=== PATIENT | female | born 1950 | race Hispanic/Latino ===

== ENCOUNTER → 2018-01-19 | Day surgery (SDC) | payer MEDICARE ==
[2018-01-16 15:04] LABS: BASOPHILS % 0.5 % (0.0-1.0); EOSINOPHILS # (AUTO) 0.2 (0.0-0.4); EOSINOPHILS % 2.2 % (0.0-6.0); HEMATOCRIT 34.5 % (34.2-44.1); HEMOGLOBIN 11.3 g/dL (12.0-16.0); LYMPHOCYTES # (AUTO) 1.9 (1.0-3.2); LYMPHOCYTES % 21.7 % (18.0-39.1); MEAN CORPUSCULAR HEMOGLOBIN 28.3 pg (28-32); MEAN CORPUSCULAR HGB CONC 32.8 g/dL (31-35); MEAN CORPUSCULAR VOLUME 86.5 fL (81-99); MONOCYTES # (AUTO) 0.5 (0.2-0.8); MONOCYTES % 5.2 % (4.4-11.3); NEUTROPHILS # (AUTO) 6.2 (2.1-6.9); NEUTROPHILS % 70.1 % (38.7-80.0); PLATELET COUNT 232 x10e3/uL (140-360); RED BLOOD COUNT 3.99 x10e6/uL (3.6-5.1)
[~2018-01-19] MED LIST: ACTOS30 MG PO; AMARYL4 MG PO; ATORVASTATIN CA20 MG PO; COLACE100 MG PO; COUMADIN5 MG PO; FENTANYL CITRATE/PF 100MCG/2 ML INJ ONE; HYOSCYAMINE SULFATE 0.5 MG/ML AMP ONE; JANUVIA100 MG PO; LIDOCAINE HCL 2% LOCAL INJ 5 ML SDV VIAL INJ ONE; METFORMIN HCL500 MG PO; MIDAZOLAM HCL 2 MG/2 ML VIAL ONE; NEXIUM40 MG PO; PROPOFOL IV EMULSION 10 MG/ML 50 ML VIAL ONE; TRAMADOL-ACETAMI1 EA PO; WARFARIN SODIU7.5 MG PO; XARELTO20 MG PO
--- NOTE | 2018-01-19 17:59 | Operative Report ---
DATE OF PROCEDURE: January 19, 2018 REFERRING PHYSICIAN: Dr. Laeh Noble. PROCEDURE PERFORMED: Colonoscopy and polypectomy. INDICATIONS FOR COLONOSCOPY: Colorectal cancer screening. MEDICATION: Patient was done under MAC. Please see anesthesiologist's note. PROCEDURE: With patient in the left lateral decubitus position, flexible fiberoptic Olympus colonoscope was inserted into the rectum with ease and advanced all the way to the cecum. A minute polyp was hot biopsied in the cecum. Polypectomy site was hemoclipped. The scope was then withdrawn slowly. The mucosa overlying the ascending, transverse, descending and sigmoid revealed some scattered diverticular disease. The rectum grossly appeared to be within normal limits. The scope was then retroflexed into the distal rectum and small internal hemorrhoids were noted, none of which was actively bleeding. The scope was then straightened out. It was subsequently withdrawn. Patient tolerated procedure well. IMPRESSION: 1. Cecal polyp, hot biopsied, polypectomy site hemoclipped. 2. Diverticulosis. 3. Internal hemorrhoids, none actively bleeding. PLAN: Follow up histology. Initiate high-fiber low-fat diet. Initiate high-fiber supplement. . Patient will need a followup colonoscopy in 3 to 5 years. Job#: [id number] GH cc:LEAH NOBLE MD
== END | disposition home or self-care (01) ==
LOC: OR 12:33
PROVIDERS: ATTEND Internal Medicine Gastroenterology
DX: Z12.11 Encounter for screening for malignant neoplasm of colon (principal); K63.5 Polyp of colon; K57.30 Diverticulosis of large intestine without perforation or abscess without bleeding; K64.8 Other hemorrhoids; E11.9 Type 2 diabetes mellitus without complications; E78.5 Hyperlipidemia, unspecified; Z01.810 Encounter for preprocedural cardiovascular examination; Z01.812 Encounter for preprocedural laboratory examination; Z79.02 Long term (current) use of antithrombotics/antiplatelets; Z86.711 Personal history of pulmonary embolism
CPT/HCPCS: 36415 ×2; 45384; 82948; 85025; 93005; J1980; J2001; J2250

== ENCOUNTER → 2019-07-03 | Day surgery (SDC) | payer MEDICARE ==
[2019-07-02 10:58] LABS: BASOPHILS % 0.6 % (0.0-1.0); EOSINOPHILS # (AUTO) 0.2 (0.0-0.4); EOSINOPHILS % 2.5 % (0.0-6.0); HEMATOCRIT 35.6 % (34.2-44.1); HEMOGLOBIN 11.4 g/dL (12.0-16.0); LYMPHOCYTES # (AUTO) 1.4 (1.0-3.2); LYMPHOCYTES % 21.2 % (18.0-39.1); MEAN CORPUSCULAR HEMOGLOBIN 28.2 pg (28-32); MEAN CORPUSCULAR VOLUME 88.1 fL (81-99); MONOCYTES # (AUTO) 0.4 (0.2-0.8); MONOCYTES % 6.5 % (4.4-11.3); NEUTROPHILS # (AUTO) 4.7 (2.1-6.9); NEUTROPHILS % 68.8 % (38.7-80.0); PLATELET COUNT 256 x10e3/uL (140-360); RED BLOOD COUNT 4.04 x10e6/uL (3.6-5.1); RED CELL DISTRIBUTION WIDTH 13.2 % (11.7-14.4)
[~2019-07-03] MED LIST changes: +GLIPIZIDE5 MG PO; +HYOSCYAMINE 0.125 MG TAB ONE; -HYOSCYAMINE SULFATE 0.5 MG/ML AMP ONE; +JANUMET 50-1,01 EACH PO; +LEVEMIR100 UNIT/1 SQ; -LIDOCAINE HCL 2% LOCAL INJ 5 ML SDV VIAL INJ ONE
--- OUTSIDE RECORDS SUMMARY | 2019-07-03 08:14 | XMS REPORT ---
Author Author [facility] Address Unknown Phone Unavailable Care Team Providers Care Laserist Name Role Phone Unavailable Unavailable Payers Payer Name Policy Type Policy Number Effective Date Expiration Date Problems This patient has no known problems. Allergies, Adverse Reactions, Alerts Allergy Name Allergy Type Status Severity Reaction(s) Onset Date Inactive Date Treating Clinician Comments No Known Allergies DA Active U 2012-08-24 00:00:00 Medications This patient has no known medications.
[2019-07-03 13:20] VITALS: BP 110/74
--- NOTE | 2019-07-03 13:59 | Operative Report ---
DATE OF PROCEDURE: 07/03/2019 SURGEON: Mina Lucas MD PROCEDURES: EGD with biopsies and colonoscopy with polypectomy. INDICATIONS FOR EGD: History of dark stools. Guaiac-positive stools. INDICATIONS FOR COLONOSCOPY: Guaiac-positive stools, personal history of colon polyps. MEDICATIONS: The patient was done under MAC, please see anesthesiologist's note. PROCEDURE IN DETAIL: With the patient in left lateral decubitus position, the flexible fiberoptic Olympus gastroscope was introduced into the esophagus under direct visualization without any difficulty. There was some patchy erythema noted in distal esophagus. The GE junction was somewhat raised and that was biopsied. The scope was then advanced with ease into the stomach. Mucosa overlying the antrum and the body revealed some patchy erythema and [id number] edema, and biopsies were obtained and sent to stain for H. pylori. Pylorus was of normal contour and shape, it was intubated with ease and the scope was advanced all the way to the second portion of the duodenum. The scope was then withdrawn slowly and mucosa overlying the second portion appeared to be within normal limits. There were some scattered minute ulcers noted in the duodenal bulb without active bleeding. The scope was then withdrawn back into the stomach and retroflexed and the mucosa overlying the fundus and the cardia appeared to be within normal limits. The scope was then straightened out, it was subsequently withdrawn, and the patient tolerated the procedure well. IMPRESSION: 1. Distal esophagitis. 2. GE junction somewhat raised, biopsied. 3. Gastritis, biopsied, biopsies sent to stain for Helicobacter pylori. 4. Several minute ulcers duodenal bulb without active bleeding or stigmata of recent hemorrhage. PLAN: Follow up histology. Initiate Protonix 40 mg one p.o. q.a.m. before meals. The patient was then turned around and after adequate lubrication of the anal canal, a flexible fiberoptic Olympus colonoscope was inserted into the rectum with ease and advanced all the way to the cecum. It was then withdrawn slowly and mucosa overlying the cecum, ascending colon, transverse colon, and descending colon appeared to be within normal limits. Diverticular disease was noted in the sigmoid colon. One polyp was removed per hot biopsy forceps from the sigmoid colon. The rectum appeared to be within normal limits. The scope was then retroflexed into the distal rectum and small internal hemorrhoids were noted, none of which was actively bleeding. The scope was then straightened out, it was subsequently withdrawn, and the patient tolerated the procedure well. IMPRESSION: 1. Diverticulosis. 2. Sigmoid colon polyp, hot biopsied. 3. Internal hemorrhoids, none actively bleeding. PLAN: Follow up histology. Initiate high-fiber, low-fat diet. Initiate high-fiber supplement. The patient might benefit from a followup colonoscopy in 5 years. Mina Lucas MD [facility]/[id number] /[id number] cc: Greg Subramanian MD
== END | disposition home or self-care (01) ==
LOC: OR 08:05
PROVIDERS: ATTEND Internal Medicine Gastroenterology
DX: R19.5 Other fecal abnormalities (principal); K63.5 Polyp of colon; K29.50 Unspecified chronic gastritis without bleeding; K25.9 Gastric ulcer, unspecified as acute or chronic, without hemorrhage or perforation; B96.81 Helicobacter pylori [H. pylori] as the cause of diseases classified elsewhere; K20.9 Esophagitis, unspecified; K59.00 Constipation, unspecified; K57.30 Diverticulosis of large intestine without perforation or abscess without bleeding; K64.8 Other hemorrhoids; Z01.810 Encounter for preprocedural cardiovascular examination; Z01.812 Encounter for preprocedural laboratory examination; Z79.84 Long term (current) use of oral hypoglycemic drugs; Z79.02 Long term (current) use of antithrombotics/antiplatelets; Z79.4 Long term (current) use of insulin
CPT/HCPCS: 36415 ×2; 43239; 45384; 82948; 85025; 88305; 88312; 93005; J2250; J2704; J3010; 45378

== ENCOUNTER → 2020-11-27 | Outpatient (CLI) | payer MEDICARE ==
[~2020-11-27] MED LIST changes: -FENTANYL CITRATE/PF 100MCG/2 ML INJ ONE; +HEPARIN SOD (PORCINE) 1000 UNIT/ML SDV ONE; -HYOSCYAMINE 0.125 MG TAB ONE; -MIDAZOLAM HCL 2 MG/2 ML VIAL ONE; -PROPOFOL IV EMULSION 10 MG/ML 50 ML VIAL ONE
== END ==
LOC: NM 07:24
PROVIDERS: ATTEND Internal Medicine Gastroenterology
DX: Z01.812 Encounter for preprocedural laboratory examination (principal); R19.5 Other fecal abnormalities
CPT/HCPCS: 74250; 78278; A9512 ×2; J1644; U0002

== ENCOUNTER → 2021-01-21 | Day surgery (SDC) | payer MEDICARE ==
[2021-01-18 09:43] LABS: BASOPHILS % 0.5 % (0.0-1.0); EOSINOPHILS # (AUTO) 0.2 (0.0-0.4); EOSINOPHILS % 3.4 % (0.0-6.0); HEMATOCRIT 35.4 % (34.2-44.1); HEMOGLOBIN 11.3 g/dL (12.0-16.0); LYMPHOCYTES # (AUTO) 1.8 (1.0-3.2); LYMPHOCYTES % 27.5 % (18.0-39.1); MEAN CORPUSCULAR HEMOGLOBIN 27.8 pg (28-32); MEAN CORPUSCULAR HGB CONC 31.9 g/dL (31-35); MEAN CORPUSCULAR VOLUME 87.2 fL (81-99); MONOCYTES # (AUTO) 0.5 (0.2-0.8); MONOCYTES % 7.7 % (4.4-11.3); NEUTROPHILS # (AUTO) 3.9 (2.1-6.9); NEUTROPHILS % 60.6 % (38.7-80.0); PLATELET COUNT 233 x10e3/uL (140-360); RED BLOOD COUNT 4.06 x10e6/uL (3.6-5.1); RED CELL DISTRIBUTION WIDTH 13.8 % (11.7-14.4)
[2021-01-18 10:04] LABS: ANION GAP 14.5 mmol/L (8-16); BLOOD UREA NITROGEN 13 mg/dL (7-26); BUN/CREATININE RATIO 19 (6-25); CALCIUM 9.5 mg/dL (8.4-10.2); CARBON DIOXIDE 24 mmol/L (22-29); CHLORIDE 106 mmol/L (98-107); CREATININE, SERUM 0.69 mg/dL (0.57-1.11); EST GLOMERULAR FILTRATION RATE > 60 ML/MIN (60-); GLUCOSE 138 mg/dL (74-118); POTASSIUM 4.5 mmol/L (3.5-5.1); SODIUM 140 mmol/L (136-145)
[~2021-01-21] MED LIST changes: +BALANCED SALT SOLN (OPTH) 15 ML BTL IO ONE; +BERBERINE PO; +BUPIVACAINE HC 0.75% PF 10ML VIAL INJ ONE; +CYCLOPENTOLATE HCL 1% OPTH SOLN 2ML BTL ONE; +EPINEPHRINE HCL 1:1000 1ML 1 MG/ML AMP ONE; +FERROUS SULFAT325 MG PO; +FOLIC ACID0.4 MG PO; +GATIFLOXACIN(OPTH) 5 ML LIQD ONE; +GLIMEPIRIDE2 MG PO; -HEPARIN SOD (PORCINE) 1000 UNIT/ML SDV ONE; +LIDOCAINE 2% /EPINEPHRINE 20 ML SDV INJ ONE; +LIDOCAINE HCL-PF 4% 40 MG/1 ML 5ML AMP ONE; +LOSARTAN POTAS100 MG PO; +PHENYLEPHRINE HCL 2 ML DROPS ONE; +PILOCARPINE HCL(OPTH) 15 ML LIQD ONE; +POVIDONE IODINE 5% (OPTH) 30 ML BTL ONE; +PROPOFOL IV EMULSION 10 MG/ML 20 ML VIAL ONE; +SLOW-MAG64 MG PO; +TOBRAMYCIN/DEXAMETHASONE(OPTH) 3.5 GM TUBE ONE; +VIT D PO
[2021-01-21 12:00] VITALS: BP 141/80
== END | disposition home or self-care (01) ==
LOC: OR 08:56
PROVIDERS: ATTEND Ophthalmology
DX: H25.12 Age-related nuclear cataract, left eye (principal); E11.9 Type 2 diabetes mellitus without complications; I10 Essential (primary) hypertension; Z01.810 Encounter for preprocedural cardiovascular examination; Z01.812 Encounter for preprocedural laboratory examination; Z20.822 Contact with and (suspected) exposure to COVID-19; Z79.02 Long term (current) use of antithrombotics/antiplatelets; Z79.4 Long term (current) use of insulin; Z86.711 Personal history of pulmonary embolism
CPT/HCPCS: 36415 ×2; 66982; 80048; 82948; 85025; 93005; J0171; J2001; J2704; U0002; V2632

== ENCOUNTER → 2021-04-15 | Day surgery (SDC) | payer MEDICARE ==
[2021-04-12 09:38] LABS: HEMATOCRIT 34.5 % (34.2-44.1)
[2021-04-12 09:47] LABS: ANION GAP 14.6 mmol/L (8-16); BLOOD UREA NITROGEN 13 mg/dL (7-26); BUN/CREATININE RATIO 19 (6-25); CALCIUM 9.2 mg/dL (8.4-10.2); CARBON DIOXIDE 28 mmol/L (22-29); CHLORIDE 103 mmol/L (98-107); CREATININE, SERUM 0.67 mg/dL (0.57-1.11); EST GLOMERULAR FILTRATION RATE > 60 ML/MIN (60-); GLUCOSE 147 mg/dL (74-118); POTASSIUM 4.6 mmol/L (3.5-5.1); SODIUM 141 mmol/L (136-145)
[~2021-04-15] MED LIST changes: +LIDOCAINE HCL 2% LOCAL INJ 5 ML SDV VIAL INJ ONE; +POVIDONE IODINE 0.05% 0.05 % ML PO ONE
[2021-04-15 10:30] VITALS: BP 152/78
== END | disposition home or self-care (01) ==
LOC: OR 07:27
PROVIDERS: ATTEND Ophthalmology
DX: H25.12 Age-related nuclear cataract, left eye (principal); E11.9 Type 2 diabetes mellitus without complications; I10 Essential (primary) hypertension; K21.9 Gastro-esophageal reflux disease without esophagitis; Z01.812 Encounter for preprocedural laboratory examination; Z79.02 Long term (current) use of antithrombotics/antiplatelets; Z79.4 Long term (current) use of insulin
CPT/HCPCS: 36415 ×2; 66984; 80048; 82948; 85014; 85018; J2001 ×2; J2704; V2632; J0171

== ENCOUNTER → 2025-05-19 | Day surgery (SDC) | payer MEDICARE ==
[2025-05-12 14:17] LABS: BASOPHILS % 0.2 % (0.0-1.0); EOSINOPHILS % 1.8 % (0.0-6.0); LYMPHOCYTES % 15.1 % (18.0-39.1); MONOCYTES % 4.9 % (4.4-11.3); NEUTROPHILS % 77.5 % (38.7-80.0); RED CELL DISTRIBUTION WIDTH 14.6 % (11.7-14.4)
[2025-05-12 14:33] LABS: EST GLOMERULAR FILTRATION RATE 92.0 ML/MIN (>=60)
[~2025-05-19] MED LIST changes: -BALANCED SALT SOLN (OPTH) 15 ML BTL IO ONE; +BUPIVACAINE 0.5%/EPI 30 ML SDV INJ ONE; -BUPIVACAINE HC 0.75% PF 10ML VIAL INJ ONE; +BUPIVACAINE LIPOSOME/PF 266 MG/20 ML IJ ONE; +CELEBREX100 MG PO; -CYCLOPENTOLATE HCL 1% OPTH SOLN 2ML BTL ONE; +DEXAMETHASONE SOD PHOS INJ 4 MG/ML SDV ONE; +EPHEDRINE SULFATE INJ 50 MG/ML VIAL ONE; -EPINEPHRINE HCL 1:1000 1ML 1 MG/ML AMP ONE; +FARXIGA10 MG PO; +FENTANYL CITRATE/PF 100MCG/2 ML INJ ONE; -GATIFLOXACIN(OPTH) 5 ML LIQD ONE; +LANTUS 3ML100 UNITS/ SC; -LIDOCAINE 2% /EPINEPHRINE 20 ML SDV INJ ONE; -LIDOCAINE HCL-PF 4% 40 MG/1 ML 5ML AMP ONE; +MIDAZOLAM HCL 2 MG/2 ML VIAL ONE; +NAPROXEN250 MG PO; +OMEPRAZOLE40 MG PO; +ONDANSETRON HCL 4 MG ORAL DISINTEGRATING TAB ONE; +ONDANSETRON HCL INJ 2MG/ML 2ML 2 MG/ML VIAL ONE; +PHENYLEPHRINE HCL 1% 10 MG/ML VIAL ONE; -PHENYLEPHRINE HCL 2 ML DROPS ONE; -PILOCARPINE HCL(OPTH) 15 ML LIQD ONE; -POVIDONE IODINE 0.05% 0.05 % ML PO ONE; -POVIDONE IODINE 5% (OPTH) 30 ML BTL ONE; +ROCURONIUM BROMIDE 1 ML IV ONE; +SODIUM CHLORIDE 0.9% 100 ML ONE; +SUGAMMADEX SODIUM 200 MG/2 ML VIAL IV ONE; -TOBRAMYCIN/DEXAMETHASONE(OPTH) 3.5 GM TUBE ONE; +TRULICITY3 MG/0.5 M SC
[2025-05-19] MEDS: LACTATED RINGER'S 1,000 ML ONE (08:14)
[2025-05-19 11:15] VITALS: TEMP 97
[2025-05-19] MEDS: HYDROMORPHONE 1MG/1ML INJ ONE (11:25)
[2025-05-19 12:30] VITALS: BP 126/81; PULSE 74; RESP 18; O2SAT 97
[2025-05-19] MEDS: ONDANSETRON HCL 4 MG ORAL DISINTEGRATING TAB SL ONE (12:55)
== END | disposition home or self-care (01) ==
LOC: OR 07:30
PROVIDERS: ATTEND Specialist
DX: S46.012A Strain of muscle(s) and tendon(s) of the rotator cuff of left shoulder, initial encounter (principal); M75.22 Bicipital tendinitis, left shoulder; M75.32 Calcific tendinitis of left shoulder; M75.52 Bursitis of left shoulder; M06.9 Rheumatoid arthritis, unspecified; M19.90 Unspecified osteoarthritis, unspecified site; G47.33 Obstructive sleep apnea (adult) (pediatric); E11.9 Type 2 diabetes mellitus without complications; I10 Essential (primary) hypertension; D68.9 Coagulation defect, unspecified; X58.XXXA Exposure to other specified factors, initial encounter; Y92.810 Car as the place of occurrence of the external cause; Z01.810 Encounter for preprocedural cardiovascular examination; Z01.812 Encounter for preprocedural laboratory examination; Z01.818 Encounter for other preprocedural examination; Z79.84 Long term (current) use of oral hypoglycemic drugs; Z79.4 Long term (current) use of insulin; Z79.02 Long term (current) use of antithrombotics/antiplatelets; Z79.899 Other long term (current) drug therapy; Z86.718 Personal history of other venous thrombosis and embolism
CPT/HCPCS: 29827; 36415 ×2; 71046; 80048; 82948; 85025; 93005; C1713; J0666; J0690; J1100; J1171; J2003; J2250; J2371; J2405; J2704; J3010; J7050; J7121; Q0162